=== PATIENT | male | born 1940 | race Caucasian/White ===

== ENCOUNTER 2022-09-25 12:01 | Day surgery (SDC) | payer MEDICARE ==
[~2022-09-25] VITALS: Ht 190.5 cm; Wt 81.2 kg
[~2022-09-25 12:01] MED LIST: ACET500C10 PO; BETAMETHASONE SOLUSPAN 6MG/ML 5ML VIAL As Ordered ONE; DORZ2SOL4 OU; ELIQ5TAB PO; FINA5TAB2 PO; LATA0.0015 OU; LIDOCAINE 1% SDV 5ML VIAL As Ordered ONE; LIDOCAINE 3.5 % 1ML OPHTH TOPICAL GEL OU ONE; METO1TAB87 PO; OMEP10CASR PO; RHOP0.02 OD; TAMS1CAP17 PO; TOBRADEX OPHTH OINT 3.5 GM As Ordered ONE; TOBRAMYCIN 80MG/2ML VIAL As Ordered ONE; mitoMYcin 0.2 MG/VIAL KIT FOR OPHTHALMIC USE As Ordered ONE
[2022-09-25] MEDS ORDERED: MIDAZOLAM INJ 2MG/2ML VIAL As Ordered ONE (13:56)
[2022-09-25] MEDS ORDERED: fentaNYL 100 MCG/2 ML INJECTION As Ordered ONE (13:56)
[2022-09-25 14:08] VITALS: BP 127/61
== END 2022-09-25 14:33 | disposition home or self-care (01) ==
LOC: M SDC 12:01
PROVIDERS: ATTEND Ophthalmology
DX: H40.1110 Primary open-angle glaucoma, right eye, stage unspecified (principal); R94.31 Abnormal electrocardiogram [ECG] [EKG]; I48.91 Unspecified atrial fibrillation; I10 Essential (primary) hypertension; K21.9 Gastro-esophageal reflux disease without esophagitis; Z79.899 Other long term (current) drug therapy; Z79.01 Long term (current) use of anticoagulants; Z90.89 Acquired absence of other organs
CPT/HCPCS: 66183; C1783; J2250; J3010; J7315